=== PATIENT | female | born 1960 | race Caucasian/White ===

== ENCOUNTER 2018-04-20 01:00 | Outpatient (CLI) | payer BC, SELFPAY ==
--- NOTE | 2018-04-20 10:08 | DI.MAMMO_ITS ---
SYMPTOMS/DIAGNOSIS: SCREENING, Z12.31 MAMMOGRAM: Mammograms were interpreted according to the usual protocol including computer analysis with CAD system, tomosynthesis and C view imaging. There is no mass or suspicious calcifications. There has been no significant interval change when compared with prior images. SUMMARY: No evidence of malignancy, Category I, yearly screening recommended. Breast density A. MQSA ASSESSMENT OF FINDINGS: Negative. Category 1. Patient will receive a letter notifying them of these results. BI-RAD category A. The breasts are almost entirely fatty.
== END 2018-04-20 01:20 ==
PROVIDERS: PCP Nurse Practitioner; Visit Provider Nurse Practitioner Family
DX: Z12.31 Encounter for screening mammogram for malignant neoplasm of breast (principal)
CPT/HCPCS: 77063; 77067

== ENCOUNTER 2019-01-16 09:11 | Outpatient (CLI) | payer BC, SELFPAY ==
[2019-01-16 11:10] LABS: ALT 29 U/L (12-78); AST 20 U/L (15-37); Albumin 3.9 g/dL (3.4-5.0); Alkaline Phosphatase 85 U/L (46-116); Anion Gap 11.5 mmol/L (3-11); BUN 15 mg/dL (7-18); Bilirubin, Total 0.9 mg/dL (0.2-1.0); CO2 27.5 mmol/L (21.0-32.0); CREATININE 0.72 mg/dL (0.55-1.02); Calcium 8.9 mg/dL (8.5-10.1); Chloride 105 mmol/L (98-107); Glucose 104 mg/dL (70-100); Potassium 3.9 mmol/L (3.5-5.1); Sodium 144 mmol/L (136-145); Total Protein 6.7 g/dL (6.4-8.2)
[2019-01-16 14:27] LABS: Calculated LDL 100; Cholesterol 159 mg/dL (50-200); HDL Cholesterol 43 mg/dL (40-60); Triglyceride 81 mg/dL (30-150)
== END 2019-01-16 09:31 ==
PROVIDERS: PCP Nurse Practitioner; Visit Provider Nurse Practitioner
DX: E78.5 Hyperlipidemia, unspecified (principal); I10 Essential (primary) hypertension
CPT/HCPCS: 36415; 80053; 80061; 83721

== ENCOUNTER 2020-03-04 02:37 | Outpatient (CLI) | payer BC, SELFPAY ==
[2020-03-04 09:12] LABS: HCT 39.1 % (36.0-46.0); HGB 13.2 g/dL (11.2-15.7); MCH 28.6 pg (27.0-33.0); MCHC 33.8 % (32.0-36.0); MCV 84.6 fL (80-95); MPV 10.8 fL (8.0-11.0); Platelet Count 197 10^3/uL (130-400); RBC 4.62 10^6/uL (3.93-5.22); RDW-SD 39.8 fL; WBC 6.52 10^3/uL (4.4-10.8)
[2020-03-04 09:22] LABS: Hemoglobin A1C 5.4 % (3.8-5.6)
[2020-03-04 10:14] LABS: ALT 29 U/L (14-59); AST 19 U/L (15-37); Albumin 4.1 g/dL (3.4-5.0); Alkaline Phosphatase 68 U/L (46-116); Anion Gap 9.2 mmol/L (3-11); BUN 18 mg/dL (7-18); CO2 26.8 mmol/L (21.0-32.0); CREATININE 0.81 mg/dL (0.55-1.02); Calcium 8.6 mg/dL (8.5-10.1); Calculated LDL 108 mg/dL (<100); Chloride 106 mmol/L (98-107); Cholesterol 169 mg/dL (<200); Glucose 104 mg/dL (74-106); HDL Cholesterol 39 mg/dL (40-60); Potassium 3.8 mmol/L (3.5-5.1); Sodium 142 mmol/L (136-145); Total Protein 6.5 g/dL (6.4-8.2); Triglyceride 113 mg/dL (<150)
== END 2020-03-04 02:57 ==
PROVIDERS: PCP Nurse Practitioner; Visit Provider Nurse Practitioner
DX: I10 Essential (primary) hypertension (principal); R73.01 Impaired fasting glucose
CPT/HCPCS: 36415; 80053; 80061; 85027; 83036

== ENCOUNTER 2020-05-16 08:20 | Day surgery (SDC) | payer BC, SELFPAY ==
[2020-05-16 08:31] VITALS: BP 130/88; PULSE 79; RESP 17; TEMP 35.9; O2SAT 96
[2020-05-16] MEDS: Lactated Ringers 1,000 ML 80 ML IV (09:19)
--- NOTE | 2020-05-16 10:23 | W.PM.DSUDISC ---
Discharge Plan Disposition Patient Disposition: HOME Condition: Good Discharge Details Reason For Visit: Colonoscopy Attending Provider: Dai Stehpens Primary Care Provider: Sarah Szymanski Home Meds and New Rx's Prescriptions: Continued xeahdwzy-keydqqjpm-LR 3.5-10,000-1 mg/mL-unit/mL-% drops,suspension 2 drp Otic as directed PRN (Reason: itchy ears) Qty: 10 RF: 0 valacyclovir 1 gram tablet 2,000 mg PO BID PRN (Reason: cold sores) Qty: 30 RF: 1 albuterol sulfate [ProAir HFA] 90 mcg/actuation HFA aerosol inhaler 2 puff Inhalation Q4H PRN (Reason: shortness of breath or wheezing) Qty: 18 RF: 1 multivitamin [Daily Vitamin] 1 EACH tablet 1 ea PO DAILY RF: 0 calcium carb and citrate-vitD3 [Citracal-D3 Slow Release] 1 EACH tablet extended release 1 ea PO DAILY RF: 0 omeprazole 20 mg capsule,delayed release(DR/EC) 20 mg PO DAILY Qty: 90 RF: 3 verapamil 120 mg tablet extended release 120 mg PO DAILY Qty: 90 RF: 3 Myrbetriq 50 mg tablet extended release 24 hr 50 mg PO DAILY RF: 0 oxybutynin chloride 10 mg tablet extended release 24hr 10 mg PO BID RF: 0 Discontinued polyethylene glycol 3350 17 gram/dose powder 238 g PO ONCE Qty: 238 RF: 0 bisacodyl [Dulcolax (bisacodyl)] 5 mg tablet,delayed release (DR/EC) 5 mg PO ONCE Qty: 4 RF: 0 Discharge Instructions Additional Instructions: Findings: Your colonoscopy was normal. Follow up: Plan for colonoscopy in 5 years due to family history of colon cancer. Please call if you develop: fevers >101.5 Nausea or Vomiting Abdominal pain that is not transient DAY SURGERY UNIT POST COLONOSCOPY INSTRUCTIONS 1. Because there will be medication in your system for the next 24 hours, you may feel a little sleepy. Your coordination will be affected. Therefore: a. Do not drive or operate dangerous equipment for 24 hours. b. Do not drink alcohol beverages for 24 hours (not even beer). c. Plan to go home and rest for the day. 2. Generally there are no restrictions on your activity after a day or so has gone by, but you may feel a bit fatigued for a few days. 3 After you arrive home you may have a light meal and return to a normal diet as you can tolerate it without feeling sick to your stomach. 4. After surgery, you may feel pain or discomfort. This should be only transient, but if it persists please contact your doctor. 5. If there are any questions regarding the findings of your procedure, please feel free to contact your doctor. 6. If you are unable to contact your doctor with a problem, contact the hospital at [phone]. 7. Continue all your regular medications unless directed otherwise. I understand the above instructions and have no questions. Signature of Patient or Responsible Adult Escort Date/Time Name of Responsible Adult Escort Signature of Nurse Date/Time Activity:: Activity as Tolerated Diet:: As Tolerated Discharge Orders Discharge Orders: Discharge Order (Routine); Ordered 05/16/20 Ordered By: Dai Stephens DS: Diagnosis Discharge Diagnosis (1) FH: colon cancer: Status: Acute
--- NOTE | 2020-05-16 10:34 | W.COLOREPORT ---
Date of service: 05/16/20 Time of Service: 11:08 Colonoscopy Report Date of procedure: 05/16/20 Pre-op diagnosis general: FH colon cancer Post-op diagnosis procedure note: other (Normal colon) Procedure: Colonoscopy Surgeon: Dai Stephens Anesthesia proc note operative: MAC Indications: This 60 year old woman presents for colonoscopy. Her prior in 2014 was normal. Her father was treated for colon cancer. Procedure Description: The patient was placed in the left Coulter position. Propofol was titrated to sedation. Digital rectal examination revealed no abnormalities. The scope was advanced to the cecum without difficulty. The ileocecal valve and appendiceal orifice were clearly identified. The prep was good. The scope was slowly withdrawn over the course of greater than 6 minutes with no abnormalities seen in the ascending, transverse, descending, sigmoid colon or rectum including on retroflexed view. The patient tolerated the procedure well and was stable to recovery. Plan for colonoscopy in 5 years or sooner if symptoms indicate.
[2020-05-16 11:30] VITALS: BP 135/79; PULSE 75; RESP 16; TEMP 36.5; O2SAT 97
== END 2020-05-16 12:00 | disposition home or self-care (01) ==
PROVIDERS: PCP Nurse Practitioner; Visit Provider Surgery
PROC: 0DJD8ZZ Inspection of Lower Intestinal Tract, Via Natural or Artificial Opening Endoscopic (ICD-10-PCS; CPT 45378; principal; 2020-05-16 09:45)
DX: Z12.11 Encounter for screening for malignant neoplasm of colon (principal); Z80.0 Family history of malignant neoplasm of digestive organs; I10 Essential (primary) hypertension; K21.9 Gastro-esophageal reflux disease without esophagitis
CPT/HCPCS: 45378; J2704

== ENCOUNTER 2020-06-17 15:31 | Outpatient (REF) | payer BC, SELFPAY ==
--- NOTE | 2020-06-17 14:45 | PAPFT_PTH ---
PATIENT: Lucia Garcia LOC: [facility] U#:[id number] AGE/SX: 60/F ROOM: RE06/17/[address]: JAYLON Suarez : 1960 BED: DIS: 06/17/2020 SPEC #: [id number] RECD: 06/17/20 18:12 STATUS: ROSEMARY REQ #: [id number] CYN: 06/17/20 14:[address]: Iman Major DEPT: [facility] Cytology RECD BY: Claudia Barger ENTERED: 06/17/20 18:12 SP TYPE: PAPFT OT DR: Sarah Szymanski APRN Tissues: 1 - CX/ENDOCX FOR PAP SMEARS Procedures: PAP THIN PREP/UVM Screening HPV DNA PROBE Comments: [id number]
== END 2020-06-17 15:51 ==
LOC: LBN 15:31
PROVIDERS: PCP Nurse Practitioner; Visit Provider Nurse Practitioner Family
DX: Z12.4 Encounter for screening for malignant neoplasm of cervix (principal); R87.810 Cervical high risk human papillomavirus (HPV) DNA test positive; Z11.51 Encounter for screening for human papillomavirus (HPV)
CPT/HCPCS: 88142; 87624

== ENCOUNTER 2020-08-27 02:13 | Outpatient (CLI) | payer BC, SELFPAY ==
--- NOTE | 2020-08-27 11:00 | DI.MAMMO_ITS ---
EXAM: MG MAMMO SCREENING CLINICAL HISTORY: screening TECHNIQUE: Bilateral full field digital CC and MLO mammographic images were obtained with 3D tomosyn thesis and utilizing computer aided detection (CAD). COMPARISON: Available for comparison. FINDINGS: Masses/Architectural Distortion: There is ovoid asymmetric density in the upper right breast on the M LO view. It may represent overlying fibroglandular and vascular tissue. However, a spot compression views requested for further evaluation. Microcalcifications: No suspicious pleomorphic-type are seen. Skin Thickening/Nipple Retraction: None. IMPRESSION: 1. Ovoid density in the right upper breast on the MLO view. 2. Spot compression views requested for further evaluation. BI-RADS Category 0 - Assessment Incomplete: Need additional imaging evaluation Breast Density - Category B - Scattered areas of fibroglandular density Breast density category C or D implies that the patient has dense breast tissue. Dense breast tissue is very common and is not abnormal but dense breast tissue can make it harder to find cancer on a ma mmogram. Also, dense breast tissue may increase their breast cancer risk. This information about the result of the mammogram report was provided to the patient to raise their awareness. Use this report when you speak with the patient about their risks for breast cancer, which includes their family hist ory. At that time, you may recommend for more screening tests (Ultrasound or MRI) as they might be us eful based on their risk. A negative radiographic report should not delay biopsy if a dominant or clinically suspicious mass is present. Up to ten percent of cancers are not identified on mammography. A negative report may reinforce clinical impression. Adenosis and dense breasts may obscure an underlying neoplasm. False positive reports average 6 to 10%. Patient will receive a letter notifying them of these results.
== END 2020-08-27 02:14 | disposition home or self-care (01) ==
LOC: DI 02:14
PROVIDERS: PCP Nurse Practitioner; Visit Provider Nurse Practitioner Family
DX: Z12.31 Encounter for screening mammogram for malignant neoplasm of breast (principal); R92.8 Other abnormal and inconclusive findings on diagnostic imaging of breast
CPT/HCPCS: 77063; 77067

== ENCOUNTER 2020-08-29 02:18 | Outpatient (CLI) | payer BC, SELFPAY ==
--- NOTE | 2020-08-29 14:55 | DI.MAMMO_ITS ---
EXAM: MG MAMMO SCREEN CALL BACK UNI CLINICAL HISTORY: F/U MAMMO, OVOID DENSITY RT UPPER BREAST ON MLO. TECHNIQUE: Craniocaudal and mediolateral oblique Full Field Digital Mammography views of the right b reast with Computer Aided Diagnosis followed by Tomosynthesis. COMPARISON: Priors available for comparison. FINDINGS: Mammography/Tomosynthesis: Masses/Architectural Distortion: None seen. Microcalcifictions: No suspicious pleomorphic-type are seen. Skin Thickening/Nipple Retraction: None. IMPRESSION: 1. No evidence of malignancy is noted. 2. Unless there is more urgent need, follow-up screening mammography is recommended, as per [place] [employer] guidelines. 3. Findings were discussed with the patient on the date of the examination. BI-RADS Category 1 - Negative Breast Density - Category B - Scattered areas of fibroglandular density Breast density category C or D implies that the patient has dense breast tissue. Dense breast tissue is very common and is not abnormal but dense breast tissue can make it harder to find cancer on a ma mmogram. Also, dense breast tissue may increase their breast cancer risk. This information about the result of the mammogram report was provided to the patient to raise their awareness. Use this report when you speak with the patient about their risks for breast cancer, which includes their family hist ory. At that time, you may recommend for more screening tests (Ultrasound or MRI) as they might be us eful based on their risk. A negative radiographic report should not delay biopsy if a dominant or clinically suspicious mass is present. Up to ten percent of cancers are not identified on mammography. A negative report may reinforce clinical impression. Adenosis and dense breasts may obscure an underlying neoplasm. False positive reports average 6 to 10%. Patient will receive a letter notifying them of these results.
== END 2020-08-29 02:19 | disposition home or self-care (01) ==
LOC: DI 02:18
PROVIDERS: PCP Nurse Practitioner; Visit Provider Nurse Practitioner Family
DX: R92.8 Other abnormal and inconclusive findings on diagnostic imaging of breast (principal)
CPT/HCPCS: 77063; 77067

== ENCOUNTER 2021-02-18 03:24 | Outpatient (CLI) | payer BC, SELFPAY ==
[2021-02-18 09:55] LABS: Hemoglobin A1C 5.5 % (<5.7)
[2021-02-18 09:58] LABS: ALT 24 U/L (14-59); AST 17 U/L (15-37); Albumin 3.9 g/dL (3.4-5.0); Alkaline Phosphatase 79 U/L (46-116); Anion Gap 10.6 mmol/L (3-11); BUN 14 mg/dL (7-18); Bilirubin, Total 0.8 mg/dL (0.2-1.0); CO2 27.4 mmol/L (21.0-32.0); CREATININE 0.7 mg/dL (0.55-1.02); Calcium 8.6 mg/dL (8.5-10.1); Calculated LDL 98 mg/dL (<100); Chloride 105 mmol/L (98-107); Cholesterol 161 mg/dL (<200); Glucose 109 mg/dL (74-106); HDL Cholesterol 40 mg/dL (40-60); Potassium 4.1 mmol/L (3.5-5.1); Sodium 143 mmol/L (136-145); Total Protein 6.6 g/dL (6.4-8.2); Triglyceride 119 mg/dL (<150)
== END 2021-02-18 03:25 | disposition home or self-care (01) ==
LOC: LBO 03:24
PROVIDERS: PCP Nurse Practitioner; Visit Provider Nurse Practitioner
DX: I10 Essential (primary) hypertension (principal); R73.01 Impaired fasting glucose; E11.9 Type 2 diabetes mellitus without complications; E66.9 Obesity, unspecified
CPT/HCPCS: 36415; 80053; 80061; 83036

== ENCOUNTER 2021-08-10 01:04 | Outpatient (CLI) | payer BC, SELFPAY ==
[2021-08-10] MEDS: Inhaler, Assist Device 1 EACH MC (09:59)
[2021-08-10] MEDS: Albuterol HFA 18 GM 200 PUFF INH IH (09:59)
--- NOTE | 2021-08-10 11:26 | W.PFT ---
Date of service: 08/10/21 Time of Service: 08:12 Pulmonary Function Test Result Requesting Provider Sarah Szymanski Indications: Cough Interpretation Spirometry: There is no airflow limitation. There is no significant bronchodilator response Diffusion Capacity: Diffusion is normal. Impression Normal spirometry and diffusion capacity Note: Patient unable to complete plethysmography due to claustrophobia. Clinical Correlation therefore is recommended.
== END 2021-08-10 01:05 | disposition home or self-care (01) ==
LOC: RT 01:04
PROVIDERS: PCP Nurse Practitioner; Visit Provider Nurse Practitioner
DX: R05.8 Other specified cough (principal)
CPT/HCPCS: 94060; 94729

== ENCOUNTER 2021-09-10 15:05 | Outpatient (REF) | payer BC, SELFPAY ==
--- NOTE | 2021-09-10 14:30 | PAPFT_PTH ---
PATIENT: Lucia Garcia LOC: [facility] U#:[id number] AGE/SX: 61/F ROOM: RE09/10/[address]: JAYLON Suarez : 1960 BED: DIS: 09/10/2021 SPEC #: [id number] RECD: 09/10/21 18:16 STATUS: ROSEMARY REQ #: [id number] CYN: 09/10/21 14:[address]: Iman Major DEPT: [facility] Cytology RECD BY: Claudia Barger ENTERED: 09/10/21 18:17 SP TYPE: PAPFT OTHR DR: Sarah Szymanski APRN Tissues: 1 - CX/ENDOCX FOR PAP SMEARS Procedures: PAP THIN PREP/UVM Screening HPV DNA PROBE Comments: [id number]
== END 2021-09-10 15:06 | disposition home or self-care (01) ==
LOC: LBN 15:05
PROVIDERS: PCP Nurse Practitioner; Visit Provider Nurse Practitioner Family
DX: Z12.4 Encounter for screening for malignant neoplasm of cervix (principal); Z11.51 Encounter for screening for human papillomavirus (HPV)
CPT/HCPCS: 88142; 87624

== ENCOUNTER 2021-09-18 02:23 | Outpatient (CLI) | payer BC, SELFPAY ==
--- NOTE | 2021-09-18 11:30 | DI.MAMMO_ITS ---
Exam(s) MAMMO SCREENING EXAM: MAMMO SCREENING CLINICAL HISTORY: screening. TECHNIQUE: Bilateral full field digital CC and MLO mammographic images were obtained with 3D tomosyn thesis and utilizing computer aided detection (CAD). COMPARISON: Prior mammograms were reviewed, the most recent being . FINDINGS: There are no new spiculated masses nor malignant appearing microcalcification groups. There is no significant architectural distortion nor skin thickening-retraction. IMPRESSION: No radiographic evidence of malignancy. BI-RADS Category 1 - Negative Breast Density - Category B - Scattered areas of fibroglandular density Breast density Category C or D implies that the patient has dense breast tissue. Dense breast tissue can make it harder to find cancer on a mammogram. Dense breast tissue is also associated with an incr eased risk of breast cancer. This information about the result of the mammogram report was provided to the patient to raise their awareness. Use this report when you speak with the patient about their risks for breast cancer, which includes their family history. At that time, you may recommend additional screening tests (Ultrasoun d or MRI) as these tests may add significant information. A negative radiographic report should not delay biopsy if a dominant or clinically suspicious mass is present. Up to ten percent of cancers are not identified on mammography. A negative report may reinforce clinical impression. Adenosis and dense breasts may obscure an underlying neoplasm. False positive reports average 6 to 10%. Patient will receive a letter notifying them of these results.
== END 2021-09-18 02:43 ==
PROVIDERS: PCP Nurse Practitioner; Visit Provider Nurse Practitioner Family
DX: Z12.31 Encounter for screening mammogram for malignant neoplasm of breast (principal)
CPT/HCPCS: 77063; 77067

== ENCOUNTER 2022-03-12 01:13 | Outpatient (CLI) | payer BC, SELFPAY ==
[2022-03-12 11:27] LABS: ALT 24 U/L (14-59); AST 19 U/L (15-37); Albumin 3.8 g/dL (3.4-5.0); Alkaline Phosphatase 71 U/L (46-116); Anion Gap 10.2 mmol/L (3-11); BUN 15 mg/dL (7-18); Bilirubin, Total 0.7 mg/dL (0.2-1.0); CO2 27.8 mmol/L (21.0-32.0); CREATININE 0.8 mg/dL (0.55-1.02); Calcium 8.8 mg/dL (8.5-10.1); Calculated LDL 104 mg/dL (<100); Chloride 104 mmol/L (98-107); Cholesterol 170 mg/dL (<200); Glucose 109 mg/dL (74-106); HDL Cholesterol 47 mg/dL (40-60); Sodium 142 mmol/L (136-145); Total Protein 7.1 g/dL (6.4-8.2); Triglyceride 95 mg/dL (<150)
== END 2022-03-12 01:14 | disposition home or self-care (01) ==
LOC: LBO 01:13
PROVIDERS: PCP Nurse Practitioner; Visit Provider Nurse Practitioner
DX: I10 Essential (primary) hypertension (principal); R73.01 Impaired fasting glucose
CPT/HCPCS: 36415; 80053; 80061; 83036

== ENCOUNTER 2022-06-28 09:20 | Outpatient (CLI) | payer BC, SELFPAY ==
[2022-06-28 09:26] LABS: Source Nasal/Nares
[2022-06-28 09:58] LABS: COVID-19 PCR Negative (Negative)
== END 2022-06-28 09:21 | disposition home or self-care (01) ==
LOC: LBN 09:21
PROVIDERS: PCP Nurse Practitioner; Visit Provider Student in an Organized Health Care Education/Training Program
DX: Z01.812 Encounter for preprocedural laboratory examination (principal); Z20.822 Contact with and (suspected) exposure to COVID-19
CPT/HCPCS: 87635

== ENCOUNTER 2022-06-29 06:07 | Day surgery (SDC) | payer BC, SELFPAY ==
[2022-06-29] VITALS (8 sets, daily range): BP systolic 108–142; BP diastolic 68–99; PULSE 64–78; RESP 12–18; TEMP 36.3–36.8; O2SAT 92–99; BMI 36.8
--- NOTE | 2022-06-29 07:02 | ANES.PREOP_ITS ---
General Info Date of Service Date Performed: 06/29/22 Height: 5 ft 3 in Weight: 94.3 kg Body Mass Index (BMI): 36.8 Surgical Procedure: Operation Date: 06/29/22 07:40 Proposed Procedure Side Surgeon p Bronchoscopy w/PURA Ruiz MD Meds Allergies and Home Medications Allergies Allergy/AdvReac Type Severity Reaction Status Date / Time adhesive Allergy Intermediate Itching Verified 06/29/22 06:20 hydromorphone HCl AdvReac Intermediate VOMITING, Verified 06/29/22 06:20 [From Dilaudid] Nausea Home Medication Medication Instructions Recorded multivitamin (Daily Vitamin tablet) 1 ea PO DAILY 10/10/12 oxybutynin chloride 10 mg 10 mg PO BID 03/20/20 tablet,extended release 24 hr idpnpqna-yufdzkvbw-pzxppqknu 3.5 2 drp otic (ear) as directed PRN 02/10/21 mg-10,000 unit/mL-1 % ear itchy ears #10 mL drops,susp valacyclovir 1 gram tablet 2,000 mg PO BID PRN cold sores #30 02/10/21 tabs omeprazole 20 mg capsule,delayed 20 mg PO DAILY #90 tab-caps 09/09/21 release verapamil 120 mg tablet,extended 120 mg PO DAILY #90 tabs 02/25/22 release ferrous sulfate 325 mg (65 mg 325 mg PO DAILY 04/20/22 iron) tablet benzonatate 100 mg capsule 100 mg PO TID PRN cough #30 06/04/22 tab-caps Current Visit Medications: Current Medications Generic Name Dose Route Start Last Admin Trade Name Freq PRN Reason Stop Dose Admin Albuterol/Ipratropium 3 ml 06/29/22 06:53 Albuterol/Ipratropium 3 Ml Upd Vial UPD Q2H PRN PRN for SOB, wheezing, or cough IV Miscellaneous Supplies 1 each 06/29/22 06:00 Iv Access IV 07/28/22 23:59 DIRECTED ARMIDA Sodium Chloride 0 ml 06/29/22 06:00 Normal Saline Flush 10 Ml Syr IV 07/28/22 23:59 PRN PRN Sodium Chloride 0 ml 06/29/22 06:00 Normal Saline 10 Ml Vial IJ 07/28/22 23:59 DIRECTED PRN Sterile Water 0 ml 06/29/22 06:00 Water,Injection,Sterile 10 Ml Vial IJ 07/28/22 23:59 DIRECTED PRN PFSH Active Problems Active Problems: Problem Status Onset Code COVID ~06/03/22 U07.1 Pre-diabetes R73.03 Chronic cough R05.3 Routine medical exam Z00.00 FH: colon cancer Z80.0 Osteoarthritis, knee 09/28/11 M17.10 Snoring 10/12/12 R06.83 Reactive airways dysfunction syndrome 09/28/11 J68.3 Obesity 10/12/12 E66.9 Other hypertrophic osteoarthropathy, unspecified site 09/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 Headache 09/28/11 R51 Gastroesophageal reflux disease 10/31/15 K21.9 Frequency of urination 03/24/17 R35.0 Essential hypertension 09/28/11 I10 Anxiety state 09/30/11 F41.1 Arteaga's neuroma of right foot ~12/2018 G57.61 IFG (impaired fasting glucose) R73.01 Routine general medical examination at a health care facility Z00.00 Encounter for screening laboratory testing for COVID-19 virus Z11.59 Recurrent cold sores B00.1 OAB (overactive bladder) N32.81 Medical History Medical History Anxiety Biliary colic Essential hypertension GERD (gastroesophageal reflux disease) Osteoarthrosis Reactive airway disease Per pt. states she has had full work up at [facility] [place] but states she has always had a chronic light cough, and a raspy voice. Symptomatic menopausal or female climacteric states Age 49 Medical History Comments:: Chronic cough Surgical History Surgical History Arthroplasty of knee (07/09/13) Dr Elda Kellogg knee arthroscopy Bilateral knee replacement section x2 cholecystectomy (06/15/17) Colonoscopy - IV Sedation (05/30/15) Spencer Armas MD [facility] [place] EGD - IV Sedation (01/22/16) Rah Sharma MD [place] History of ankle surgery compartment syndrome ptosis eyelid repair, 2011 Replacement of total knee joint (10/07/16) [facility] rgt knee surgery, torn meniscus,fascia L Tobacco Smoking/Tobacco Use Status: Never Passive smoking exposure: No Alcohol Alcohol Intake: current Alcohol intake frequency: a few times a month Alcohol type: wine and other Substance Use Substance use: Never Substance use type: does not use Vital Signs and Lab Results Vital Signs Most Recent Vital Signs in EMR: Most Recent Vital Signs Temp Pulse Resp BP Pulse Ox 36.5 C 70 16 142/88 H 97 06/29/22 06:29 06/29/22 06:29 06/29/22 06:29 06/29/22 06:29 06/29/22 06:29 Lab Results Blood Type / Crossmatch: No Data to Display Complete Blood Count: No Data to Display Complete Metabolic Panel: No Data to Display Liver Function Panel: No Data to Display Coagulation Panel: No Data to Display Cardiac Panel: No Data to Display Arterial Blood Gas: No Data to Display Venous Blood Gas: No Data to Display Pancreas Panel: No Data to Display Thyroid Panel: No Data to Display Infectious Disease: Coronavirus (COVID-19)(PCR) Negative (Negative) 06/28/22 09:12 Coronavirus 2019 Source Nasal/Nares 06/28/22 09:12 Blood Cultures: No Data to Display Toxicology Panel: No Data to Display Imaging and Studies Imaging and Studies Study information below may be from another EMR and interpreted by another provider. Please see original notes in EMR for more complete details. Pulmonary Function Summary: DATE OF ADMIT: 08/10/21 : 1960 Date of service: 08/10/21 Time of Service: 08:12 Pulmonary Function Test Result Requesting Provider Sarah Szymanski Indications: Cough Interpretation Spirometry: There is no airflow limitation. There is no significant bronchodilator response Diffusion Capacity: Diffusion is normal. Impression Normal spirometry and diffusion capacity Note: Patient unable to complete plethysmography due to claustrophobia. Clinical Correlation therefore is recommended. Anesthesia Assessment and Plan Anesthesia History Personal History: No History of Anesthesia Complications Family History: No Family History of Anesthesia Complications Exercise Tolerance Exercise Tolerance: Metabolic Equivalents>4 Pertinent Negatives Pertinent Negatives: No Symptoms of GERD Cardiac & Pulmonary Exam Cardiac Exam: Normal S1/S2 Heart Sounds Pulmonary Exam: Clear Bilateral Breath Sounds Implantable Cardiac Device Does patient have a Pacemaker or an ICD?: No Airway Exam Known Difficult Airway: No Mallampati Class: 2 Mouth Opening: Normal (> 3cm) Thyromental Distance: Greater than 3 cm Neck Range of Motion: Full ROM Neck Circumference: Normal Teeth Condition: Normal Dentition ASA Classification ASA Score: ASA 2 Emergency Case?: No NPO Status NPO Status: NPO Clears >2 hours, Solids >8 hours Anesthesia Plan Resuscitation Status: Full Code Anesthesia Technique: General Anesthesia Airway Planned: Endotracheal Tube Monitors Used: Standard Monitors
[2022-06-29] MEDS: Lactated Ringers 1,000 ML 30 ML IV (07:10)
--- NOTE | 2022-06-29 07:32 | W.PREOPHP ---
Assessment and Plan Assessment and plan (1) Chronic cough: Status: Acute Assessment and plan: This is a 61 yo female referred to pulmonary clinic for chronic cough. He methacholine challenge was negative and her PFT's are normal. She has the HRCT which shows a RML nodule but no reason for the cough. She is here for flexible bronchoscopy to help diagnose the etiology. Chronic Cough Proceed with bronchoscopy History of Present Illness Narrative: 62 yo with chronic cough here for flexible bronchoscopy to possibly diagnose the etiology. Review of Systems Narrative: cough PFSH All Active Problems COVID (Acute ~06/03/22) Pre-diabetes (Acute) Chronic cough (Acute) Routine medical exam (Acute) FH: colon cancer (Acute) Osteoarthritis, knee (Acute 09/28/11) 07/09/15 Dr. Karlos Lan clinic bilateral knee steroid injections Snoring (Acute 10/12/12) WORKING ON WEIGHT LOSS; MONITOR SPO2 Reactive airways dysfunction syndrome (Acute 09/28/11) Work-up at [facility] Obesity (Acute 10/12/12) Other hypertrophic osteoarthropathy, unspecified site (Acute 09/28/11) KNEE, WORKING ON WEIGHT LOSS Headache (Acute 09/28/11) h/o migraine disorder, takes verapamil--which helps with HTN as well Gastroesophageal reflux disease (Acute 10/31/15) Frequency of urination (Acute 03/24/17) Sees Dr Bashir Essential hypertension (Acute 09/28/11) Anxiety state (Acute 09/30/11) Sertraline controlled Arteaga's neuroma of right foot (Acute ~12/2018) Cory Martinez DPM IFG (impaired fasting glucose) (Acute) Routine general medical examination at a health care facility (Acute) Encounter for screening laboratory testing for COVID-19 virus (Acute) Recurrent cold sores (Acute) OAB (overactive bladder) (Acute) Medical History Anxiety Biliary colic Essential hypertension GERD (gastroesophageal reflux disease) Osteoarthrosis Reactive airway disease Per pt. states she has had full work up at [facility] but states she has always had a chronic light cough, and a raspy voice. Symptomatic menopausal or female climacteric states Age 49 Surgical History Arthroplasty of knee (07/09/13) Dr Elda Kellogg knee arthroscopy Bilateral knee replacement section x2 cholecystectomy (06/15/17) Colonoscopy - IV Sedation (05/30/15) Spencer Armas MD [facility] EGD - IV Sedation (01/22/16) Rah Sharma MD [place] History of ankle surgery compartment syndrome ptosis eyelid repair, 2011 Replacement of total knee joint (10/07/16) [facility] rgt knee surgery, torn meniscus,fascia L Family History Mother Disorder of thyroid gland Hypertension Osteoarthritis Father , alcoholism at age 78. Personal history of malignant neoplasm colorectal Alcoholism Colon cancer Anxiety Depression Osteoarthritis Grandmother Muscular dystrophy Other Dementia Daughter Disorder of thyroid gland Thyroidectomy Anxiety Depression Paternal Grandmother Alcohol abuse alcohol or drug Aunt Breast cancer maternal great aunt Other Asthma Attention deficit hyperactivity disorder Social History (Updated 02/25/22 @ 15:43 by Bebe Kebede LPN) Smoking/Tobacco Use Status: Never Smoking risk assessment performed?: Yes Alcohol Intake: current Alcohol Intake frequency: a few times a month Alcohol type: wine and other Drug use: Never Substance use type: does not use Household members: spouse Housing: house Number of Children: 2 number of grandchildren: 0 Communication Needs: Corrective Lenses Education Level: college Details: BS in psychology current occupation: retired Current gender identity: male What is your relationship status?: How often do you talk on the phone with friends or family?: three or more times per week How often do you get together with friends or relatives?: three or more times per week Panel score (0-1 are the most socially isolated patients): 2 What type of physical activity do you participate in: walking and bicycling Frequency: 1-2 times per week Seatbelt use: always Working smoke detector in home: Yes Fire extinguisher in home: Yes Carbon monox detector in home: Yes Do you feel safe at home: Yes Do you feel safe in your relationship?: Yes Female Reproductive History Menstrual Menopause type: natural Meds Allergies and Home Medications Allergies Allergy/AdvReac Type Severity Reaction Status Date / Time adhesive Allergy Intermediate Itching Verified 06/29/22 06:20 hydromorphone HCl AdvReac Intermediate VOMITING, Verified 06/29/22 06:20 [From Dilaudid] Nausea Home Medications Medication Instructions Recorded Confirmed Type multivitamin (Daily Vitamin tablet) 1 ea PO DAILY 10/10/12 06/29/22 History oxybutynin chloride 10 mg 10 mg PO BID 03/20/20 06/29/22 History tablet,extended release 24 hr ihhyzjtv-xmaeqpzwa-tfvnlxtoa 3.5 2 drp otic (ear) as directed PRN 02/10/21 06/29/22 Rx mg-10,000 unit/mL-1 % ear itchy ears #10 mL drops,susp valacyclovir 1 gram tablet 2,000 mg PO BID PRN cold sores #30 02/10/21 06/29/22 Rx tabs omeprazole 20 mg capsule,delayed 20 mg PO DAILY #90 tab-caps 09/09/21 06/29/22 Rx release verapamil 120 mg tablet,extended 120 mg PO DAILY #90 tabs 02/25/22 06/29/22 Rx release ferrous sulfate 325 mg (65 mg 325 mg PO DAILY 04/20/22 06/29/22 History iron) tablet benzonatate 100 mg capsule 100 mg PO TID PRN cough #30 06/04/22 06/29/22 Rx tab-caps Exam Narrative Exam Narrative: Gen:?NAD, normal respiratory effort, well-nourished HENT:?PERRL, nasal turbinates boggy and inflamed bilaterally, moist oral? mucosa, Mallampati 3, No LAD or JVD Chest:?No respiratory distress, normal appearance of chest, clear to auscultation bilaterally, no crackles or wheezes, normal inspiratory effort Heart:?regular rate and rhythym, no murmurs, rubs or gallops Abdomen:?Non-distended, soft, non tender Extremities:?No clubbing, edema, cyanosis, rashes Neuro:?AAOx3 , non focal Psych:?cooperative, appropriate mental affect Results Last Vital Signs Temp 36.5 C 06/29/22 06:29 Pulse 70 06/29/22 06:29 Resp 16 06/29/22 06:29 BP 142/88 H 06/29/22 06:29 Pulse Ox 97 06/29/22 06:29
--- NOTE | 2022-06-29 08:08 | PAPNONF_PTH ---
PATIENT: Lucia Garcia LOC: [facility] U#:[id number] AGE/SX: 62/F ROOM: RE06/29/[address]: Shruthi Ruiz MD : 1960 BED: DIS: 06/29/2022 SPEC #: [id number] RECD: 06/29/22 12:50 STATUS: ROSEMARY REJamaal #: [id number] CYN: 06/29/22 08:[address]: Shruthi Ruiz DEPT: [facility] Cytology RECD BY: Claudia Barger ENTERED: 06/29/22 12:51 SP TYPE: BRYAN REYEZ DR: Sarah Szymanski APRN Tissues: 1 - BODY FLUID CYTO(NOT S/U/N/EM)[facility] 2 - BODY FLUID CYTO(NOT S/U/N/EM)[facility] Procedures: BODY FLUID CYTO(NOT SPU/UR/NIP/ENDOM)[facility] Comments: [id number] (REFRIGERATED, SENT FRESH)
[2022-06-29] MEDS: Lidocaine 1% Pres-Free 30 ML VIAL (08:13)
--- NOTE | 2022-06-29 08:55 | W.ANESPOSTOP ---
Postoperative Evaluation Date, Time and Location Date Performed: 06/29/22 Time Performed: 08:56 Patient Location: PACU Vital Signs Most Recent Imported Vital Signs: Most Recent Vital Signs Temp Pulse Resp BP Pulse Ox 36.7 C 74 12 112/76 99 06/29/22 08:47 06/29/22 08:47 06/29/22 08:47 06/29/22 08:47 06/29/22 08:32 Pain Score Most Recent Pain Score: Most Recent Pain Score Pain Level 0 06/29/22 08:47 Assessment Mental Status: Awake (Alert & Oriented to Patient Baseline) Airway and Respiratory Function: Patent airway with normal (patient baseline) respiratory exam Cardiovascular Function: Hemodynamically Stable Hydration Status: Adequately Hydrated Nausea & Vomiting: No Nausea or Vomiting Pain: Pt. Denies Any Pain Peripheral Nerve Block: Patient did not receive a nerve block Postoperative Comments:: Cough improving wiht time. Pt. doing well.
--- NOTE | 2022-06-29 09:37 | W.PM.OP ---
Date of service: 06/29/22 Time of Service: 08:00 Operative Note Operative Note PRE-OP DIAGNOSIS: Chronic cough Refer to Anesthesia Record Procedure Description: Bronchoscopy Indication:Chronic cough Procedure performed: Flexible bronchoscopy with BAL, bronchial washings and endobronchial brushing Sedation plan: General anesthesia Informed consent was obtained after the risks and benefits or the procedure were discussed. After anesthesia provided sedation, I intubated the patient with a glydescope 3 with a 8.0 ETT on first attempt. A proper and complete OR compliant time out was performed. The therapeutic 6.2mm Olympus bronchoscope was inserted through the endotracheal tube. The bronchoscope was inserted into the airways, where 2cc in total of 1% topical lidocaine was used the anesthetize the airways. The trachea was midline and without lesion or injury. The mucosa appeared normal and there were no signs of tracheomalacia. The ino was sharp. All bronchial subsegments were visualized within each lobe and showed generously sized airways bordering on bronchiectasis but without significant mucus. There were numerous diverticuli present diffusely through the airways. In the posterior basal subsegment of the LLL there was redundant appearing tissue at the take off to this segment. On phased array it appeared to be normal tissue but less vascularized than surrounding tissue. I completed 8 passes of an endobronchial brush of this tissue to send for pathology. A bronchoalveolar lavage was performed in the lateral subsegment of the RML. A total of 120cc of saline was administered with a return of 40cc. The fluid was slightly cloudy in appearance with visible mucus plugs. The bronchoscope was then removed and the case terminated. The patient was taken to PACU in stable condition. Samples collected: RML BAL, LLL endobonchial brushing, bronchial washings Testing ordered: cell diff, bacterial, fungal and AFB cultures, cytopath Complications:None Shruthi Ruiz MD Pulmonary & Critical Care Medicine
[2022-06-30 16:34] LABS: Lymphocytes Fluid Relative 10 %; Mono/Macrophage Fluid Relative 85 %; Neutrophils Fluid Relative 4 %
[2022-06-30 16:35] LABS: Eosinophils Fluid Relative 1 %
[2022-07-01 09:31] LABS: Gram Smear Result Neutrophils Present
[2022-07-27 10:33] LABS: Fungus Smear No Fungi Seen
[2022-07-27 10:44] LABS: Fungus Smear No Fungi Seen
== END 2022-06-29 10:15 | disposition home or self-care (01) ==
PROVIDERS: PCP Nurse Practitioner; Visit Provider Student in an Organized Health Care Education/Training Program
PROC: 0BJ08ZZ Inspection of Tracheobronchial Tree, Via Natural or Artificial Opening Endoscopic (ICD-10-PCS; CPT 31622; principal; 2022-06-29 07:30)
DX: R05.3 Chronic cough (principal); R91.1 Solitary pulmonary nodule; Z79.899 Other long term (current) drug therapy; R84.6 Abnormal cytological findings in specimens from respiratory organs and thorax
CPT/HCPCS: 31623; 31624; 80162; 87070; 87102; 87116; 87205; 87206; 88104; J1100; J2405; J2704

== ENCOUNTER 2022-07-07 03:07 | Outpatient (CLI) | payer BC, SELFPAY ==
[2022-07-07 11:05] LABS: Hemoglobin A1C 5.5 % (<5.7)
== END 2022-07-07 03:08 | disposition home or self-care (01) ==
LOC: LBO 03:07
PROVIDERS: PCP Nurse Practitioner; Visit Provider Nurse Practitioner
DX: R73.03 Prediabetes (principal)
CPT/HCPCS: 36415; 83036

== ENCOUNTER 2023-06-15 03:38 | Outpatient (CLI) | payer MEDICARE, BC, SELFPAY ==
[2023-06-15 09:13] LABS: ALT 22 U/L (14-59); AST 16 U/L (15-37); Albumin 3.9 g/dL (3.4-5.0); Alkaline Phosphatase 88 U/L (46-116); Anion Gap 8.9 mmol/L (3-11); BUN 13 mg/dL (7-18); Bilirubin, Total 0.7 mg/dL (0.2-1.0); CO2 30.1 mmol/L (21.0-32.0); CREATININE 0.9 mg/dL (0.55-1.02); Calcium 9.3 mg/dL (8.5-10.1); Calculated LDL 110 mg/dL (<100); Chloride 103 mmol/L (98-107); Cholesterol 175 mg/dL (<200); Estimated GFR 70.95 (mL/min/1.73m2); Glucose 113 mg/dL (74-106); HDL Cholesterol 44 mg/dL (40-60); Potassium 3.6 mmol/L (3.5-5.1); Sodium 142 mmol/L (136-145); Total Protein 7.6 g/dL (6.4-8.2); Triglyceride 109 mg/dL (<150)
[2023-06-15 09:20] LABS: Hemoglobin A1C 5.3 % (<5.7)
== END 2023-06-15 03:39 | disposition home or self-care (01) ==
LOC: LBO 03:39
PROVIDERS: PCP Nurse Practitioner; Referring Provider Nurse Practitioner; Visit Provider Nurse Practitioner
DX: I10 Essential (primary) hypertension (principal); Z13.1 Encounter for screening for diabetes mellitus; Z13.220 Encounter for screening for lipoid disorders; E11.9 Type 2 diabetes mellitus without complications
CPT/HCPCS: 36415; 80053; 80061; 83036

== ENCOUNTER → 2023-06-22 02:09 | Outpatient (CLI) | payer MEDICARE, BC, SELFPAY ==
--- NOTE | 2023-06-22 07:45 | DI.DEXA_ITS ---
Exam(s) XR DEXA BONE DENSITY W/WO HAWA EXAM: XR DEXA BONE DENSITY W/WO HAWA CLINICAL HISTORY: screening for osteoporosis in postmenopausal woman,z78.0 TECHNIQUE: COMPARISON: No exams were available for comparison FINDINGS: Lateral Spine Image: Unremarkable. No compression deformities identified. Left hip: Total T-Score: -0.2 Total Z-Score: 1.0 T- and Z-scores: Within normal limits. Lumbar Spine: Total T-Score: -0.5 Total Z-Score: 1.3 T- and Z-scores: Within normal limits. IMPRESSION: No evidence of osteoporosis.
== END ==
PROVIDERS: PCP Nurse Practitioner; Visit Provider Nurse Practitioner
DX: Z78.0 Asymptomatic menopausal state (principal); Z13.820 Encounter for screening for osteoporosis
CPT/HCPCS: 77080

== ENCOUNTER → 2023-08-16 11:15 | Outpatient (BNVA) | payer MEDICARE, BC, SELFPAY | PROVIDERS: PCP Nurse Practitioner; Referring Provider Nurse Practitioner; Visit Provider Physician Assistant Surgical | DX: R05.3 Chronic cough (principal) | CPT/HCPCS: 99214 ==

== ENCOUNTER 2023-10-05 15:55 | Outpatient (REF) | payer MEDICARE, BC, SELFPAY ==
--- NOTE | 2023-10-05 15:10 | PAPFT_PTH ---
PATIENT: Lucia Garcia LOC: [facility] U#:[id number] AGE/SX: 63/F ROOM: RE10/05/[address]: Jes Diaz NP : 1960 BED: DIS: 10/05/2023 SPEC #: [id number] RECD: 10/05/23 17:29 STATUS: ROSEMARY JIANG #: [id number] CYN: 10/05/23 15:[address]: Jes Diaz NP DEPT: [facility] Cytology RECD BY: Claudia Barger ENTERED: 10/05/23 17:30 SP TYPE: PAPFT OTHR DR: Sarah Szymanski APRN Tissues: 1 - CX/ENDOCX FOR PAP SMEARS Procedures: PAP THIN PREP/[facility] Screening HPV DNA PROBE Comments: [id number]
== END 2023-10-05 15:56 | disposition home or self-care (01) ==
LOC: LBN 15:55
PROVIDERS: PCP Nurse Practitioner; Visit Provider Nurse Practitioner Women's Health
DX: Z11.51 Encounter for screening for human papillomavirus (HPV) (principal); Z01.419 Encounter for gynecological examination (general) (routine) without abnormal findings
CPT/HCPCS: 88142; 87624

== ENCOUNTER → 2023-10-14 00:16 | Outpatient (CLI) | payer MEDICARE, BC, SELFPAY ==
--- NOTE | 2023-10-14 11:50 | DI.MAMMO_ITS ---
Exam(s) MAMMO SCREENING EXAM: MAMMO SCREENING CLINICAL HISTORY: screening. TECHNIQUE: Bilateral full field digital CC and MLO mammographic images were obtained with 3D tomosyn thesis and utilizing computer aided detection (CAD). COMPARISON: Prior mammograms were reviewed. FINDINGS: There has been no significant change in the appearance and distribution of the fibroglandular tissue. There are no new spiculated masses nor malignant appearing microcalcification groups. There is no significant architectural distortion nor skin thickening-retraction. IMPRESSION: No radiographic evidence of malignancy. BI-RADS Category 1 - Negative Breast Density - Category B - Scattered areas of fibroglandular density Breast density Category C or D implies that the patient has dense breast tissue. Dense breast tissue can make it harder to find cancer on a mammogram. Dense breast tissue is also associated with an incr eased risk of breast cancer. This information about the result of the mammogram report was provided to the patient to raise their awareness. Use this report when you speak with the patient about their risks for breast cancer, which includes their family history. At that time, you may recommend additional screening tests (Ultrasoun d or MRI) as these tests may add significant information. A negative radiographic report should not delay biopsy if a dominant or clinically suspicious mass is present. Up to ten percent of cancers are not identified on mammography. A negative report may reinforce clinical impression. Adenosis and dense breasts may obscure an underlying neoplasm. False positive reports average 6 to 10%. Patient will receive a letter notifying them of these results.
== END ==
PROVIDERS: PCP Nurse Practitioner; Visit Provider Nurse Practitioner Women's Health
DX: Z12.31 Encounter for screening mammogram for malignant neoplasm of breast (principal)
CPT/HCPCS: 77063; 77067

== ENCOUNTER → 2023-12-27 12:57 | Outpatient (CLI) | payer MEDICARE, BC, SELFPAY ==
--- NOTE | 2023-12-27 13:50 | DI.RAD_ITS ---
Exam(s) XR FINGER RT MIDDLE EXAM: XR FINGER RT MIDDLE CLINICAL HISTORY: DYSTROPHIC NAIL L60.3, INFECTION, INCLUDE MIDDLE AND DISTAL PHALANX. TECHNIQUE: 2D digital imaging was performed of the right finger. Three views were obtained. PA/AP, oblique, and lateral views were obtained. COMPARISON: No exams were available for comparison FINDINGS: BONES: No acute fracture is present. No bony destructive lesion is seen. JOINTS: No dislocation present. Degenerative changes are seen at the interphalangeal joints characte rized by joint space narrowing and osteophytes. Mild erosive changes are seen at the DIP joint of th e middle finger. SOFT TISSUE: There is soft tissue swelling of the middle finger. No radiopaque foreign body is ident ified. IMPRESSION: Findings suggestive of erosive osteoarthritis. DATA REPOSITORY: RADIATION DOSE DELIVERED:
== END ==
PROVIDERS: PCP Nurse Practitioner; Visit Provider Nurse Practitioner
DX: L60.3 Nail dystrophy (principal); M18.11 Unilateral primary osteoarthritis of first carpometacarpal joint, right hand
CPT/HCPCS: 73140

== ENCOUNTER → 2024-01-11 03:03 | Outpatient (CLI) | payer MEDICARE, BC, SELFPAY ==
--- NOTE | 2024-01-11 15:49 | DI.RAD_ITS ---
Exam(s) XR CHEST 2V PA LATERAL EXAM: XR CHEST 2V PA LATERAL CLINICAL HISTORY: recent altitude sickness, WHEEZING, R06.2 TECHNIQUE: 2D digital imaging was performed. Two views. COMPARISON: CT CT CHEST HIGH RESOLUTION from 05/04/2022 FINDINGS: HEART: Normal size. Aorta: Mildly tortuous. PULMONARY VASCULATURE: Normal. LUNGS: Clear. PLEURAL SPACE: No pleural effusion or pneumothorax. BONE:Unremarkable for age. Soft tissues: Unremarkable. IMPRESSION: No acute abnormality. DATA REPOSITORY: RADIATION DOSE DELIVERED:
== END ==
PROVIDERS: PCP Nurse Practitioner; Visit Provider Student in an Organized Health Care Education/Training Program
DX: R06.2 Wheezing (principal)
CPT/HCPCS: 71046

== ENCOUNTER → 2024-02-07 08:00 | Outpatient (BNVA) | payer MEDICARE, BC, SELFPAY | PROVIDERS: PCP Nurse Practitioner; Referring Provider Nurse Practitioner; Visit Provider Surgery | DX: R13.10 Dysphagia, unspecified (principal) | CPT/HCPCS: 99214 ==

== ENCOUNTER → 2024-02-08 02:01 | Outpatient (CLI) | payer MEDICARE, BC, SELFPAY ==
[2024-02-08] MEDS: Barium Sulfate 40% W/V 240 ML BTL 75 ML PO (14:40)
[2024-02-08] MEDS: Barium Sulfate 700 MG TAB PO (14:41)
[2024-02-08] MEDS: Barium Sulfate Oral Paste 40% W/V 230 ML TUBE 13 ML PO (14:41)
[2024-02-08] MEDS: Barium Sulfate 81% w/w for Oral Suspension 148 GM BTL 80 GM PO (14:42)
--- NOTE | 2024-02-08 14:55 | ST.MBS_ITS ---
Date of Service Date of service: 02/08/24 Time of Service: 14:55 Modified Barium Swallow Study Findings: Video fluoroscopic Swallowing Evaluation (VFSE) / Modified Barium Swallow Study (MBSS) Speech Language Pathology Report Patient referred for VFSE/MBSS from Dr. Servin given suspected oral-pharyngeal vs pharyngo-esophageal dysphagia. HPI & Patient report of function: Patient is a 63year old F with neurogenic cough being treated effectively with gabapentin, now with several recent events of reported coughing/choking with thin liquids, resulting in syncope and brief LOC. These events occurred late at night, only on thin liquids. Additionally, she reports a long history of sensation of pharyngeal stasis with dry/tough (e.g., crusty bread, large bites of steak) as well as dry/particulate (white rice) solids, sometimes leading to coughing. She feels she is limited by this when she goes out to eat and can only order certain foods. She will not begin eating a meal without having a glass of water in front of her due to the frequency and severity of these episodes. She did not report a long history of heartburn/reflux, but was put on a trial of PPI by PCP. She did not feel it was helping, however, when she began to taper off of it she did start to become sensate to heartburn/reflux and has therefore decided to stay on PPI. She was evaluated by MEDICAL EDUCATOR in clinic and MBSS was recommended. She also attended a surgery consult for EGD with Dr. Patrick, who recommended MBSS as well. IMPRESSIONS: Mild-moderate chronic pharyngoesophageal dysphagia is suspected, in context of small cricopharyngeal prominence identified by radiologist (which does not appear to have any functional impact, but patient may be sensate to this) and mild retention of puree consistencies in proximal esophagus (without retrograde flow noted). Suspect presentation is at least partially a result of chronic reflux. Given additional dx of neurogenic cough, there is also possible element of hypersensate pharynx/larynx contributing to reported severity of patient s ymptoms. However, thin liquid coughing episodes could also be explained by reflux aspiration given noted proximal esophageal retention. Patient's reported difficulty with solids is most likely referred sensation from the esophagus given lack of pharyngeal impairment or residue on exam. There was no aspiration and only shallow flash penetration of thin liquids during large/consecutive sips. Although there was a mild delay in pharyngeal onset, this is often a normal finding and did not result in any significant penetration and aspiration. All other aspects of oral and pharyngeal swallow were normal. 13mm barium tablet transited the oropharynx and the UES without any delay. Diet modification is indicated; non-oral nutrition is not indicated. Swallow prognosis is good given: Positive prognostic factors: Severity, Motivation, Family/caregiver support, Cognitive status, Negative prognostic factors: Time since onset, and pending patient/caregiver training in risk management as outlined, including use of trialed compensatory strategies. Patient appears to be a good candidate for behavioral swallow rehabilitation. Specialist referrals:? Consider GI if strategies counseled by MEDICAL EDUCATOR are not effective in managing patient's episodes. ? RECOMMENDATIONS: Diet Texture Recommendation:? IDDSI LEVEL SOLIDS 6-Soft & Bite-Sized Solids LIQUIDS 0-Thin Liquids Please see further details at?[email or web address].org MEDICATIONS Whole with 0-Thin Liquids Diet texture modification is per patient's preference; please adjust diet textures at patient's discretion & collaboration with care team. Do not alter medications (e.g., cut)? without advice from your MD or pharmacist. Risk Management Strategies:? Small bites, approx [id number] Small sips, approx 10 mL Alternate solids/liquids as able Reflux Management Strategies: Slow pace Upright position during + 90 mins after meals Small/more frequent meals and drinking throughout the day Sleep on an incline Control risk factors for aspiration pneumonia via (a) thorough oral hygiene & (b) maintaining physical mobility as tolerated PLAN: Therapy: Recommend subsequent outpatient session with MEDICAL EDUCATOR to review results of today's exam and develop treatment plan as appropriate. May consider the following: Further Compensatory Strategy Training, Further Training/Education in Risk Management, Further Counseling re: Options for maintaining quality of life in context of dysphagia presentation Goals: TBD pending patient/caregiver interview ----- OBJECTIVE Videofluoroscopic Swallow Evaluation (VFSE/MBSS) was conducted in the lateral pr ojection by Speech-Language Pathologist, in collaboration with Radiologist, to evaluate oropharyngeal swallow function. Anatomic view under fluoroscopy: Mild cricopharyngeal hypertrophy noted PO Barium Contrast Trials Oral barium water-soluble contrast was administered as follows: IDDSI Level 0 Varibar thin liquid (40% w/v) IDDSI Level 4 Varibar pudding/pureed/extremely thick (40% w/v) IDDSI Level 7 Regular Solid: 1/2 navid cracker coated in 3 mL Varibar pudding 13 mm barium tablet taken with Water. MBSImP Component Scores: COMPONENT Scale SCORE 1 Lip closure (0-4) 0 Resulted in no labial escape 2 Hold Position (0-3) 0 Maintained a cohesive bolus between tongue to palatal seal 3 Bolus Preparation (0-4) 1 Resulted in slow prolonged chewing/ mashing with complete re-collection 4 Bolus Transport (0-4) 0 Was with brisk tongue motion 5 Oral Residue (0-4) 1 Was a trace, lining oral structures 6 Swallow Initiation (0-4) 3 Occurred when the bolus head was in the pyriform sinuses 7 Soft Palate Elevation (0-4) 0 Resulted in no bolus between soft palate and the pharyngeal wall 8 Laryngeal Elevation (0-3) 1 Was decreased with partial superior movement of thyroid cartilage/partial approximation of arytenoids to epiglottic petiole 9 Anterior Hyoid Motion (0-2) 0 Demonstrated complete anterior movement 10 Epiglottic Movement (0-2) 0 Resulted in complete inversion 11 Laryngeal Closure (0-2) 0 Was complete with no air or contrast in laryngeal vestibule 12 Pharyngeal Stripping Wave (0-2) 0 Was present and complete 13 Pharyngeal Contraction (0-3) NA 14 PES Opening (0-3) 0 Was completely distended and complete duration with no obstruction of flow 15 Tongue Base Retraction (0-4) 1 Allowed a trace column of contrast or air between tongue base and pharyngeal wall 16 Pharyngeal Residue (0-4) 1 Showed a trace within or on pharyngeal structures 17 Esophageal Clearance (0-4) NA unratable due to lack of a/p view, however, noting proximal retention of partial puree bolus Results: COMPONENT Scale SCORE 1 Oral Score (0-18) 4 2 Pharyngeal Score (0-29) 1 3 Esophageal Score (0-4) 4 Not rated Penetration-Aspiration Scale: COMPONENT Scale SCORE 1 Thin liquid (1-8) 2 Contrast entered the airway, remained above the vocal folds, and was ejected from the airway. 2 [place] thick (1-8) NA 3 Honey thick (1-8) NA 4 Pudding thick (1-8) 1 Contrast did not enter the airway 5 Cookie (1-8) 1 Contrast did not enter the airway Trialed Compensatory Strategies & Outcome: Maneuvers Successful(+) Unsuccessful(-) Postures Successful(+) Unsuccessful(-) 3 second Preparatory Set? ?+/- Chin Tuck Posture? ? Cough? ? Posterior Head tilt? Reflexive? Cued? Throat Clear? ? Head Tilt to? Reflexive? Left? Cued? Right? ? Saliva swallow? ? Head Turn/Rotate to? Supraglottic Swallow? Left? ? Super-supraglottic Swallow? Right? ? Bolus Modifications Successful (+) Unsuccessful (-) Delivery/Alternating Consistencies ? Follow with Liquid Wash was not indicated by fluroscopy but improved symptoms ? Follow with Solid Bolus? Delivery/Via Straw? ? Reduced Volume? + Reduced Rate of Intake? ?+ Increased Viscosity? ? Other:?? ? Thank you for allowing us to take part in this patient's care. Please feel free to contact the [facility] Speech Language Pathology Department with any questions/concerns.
--- NOTE | 2024-02-08 15:31 | DI.RAD_ITS ---
Exam(s) RF MODIFIED SPEECH BA SWALLOW TECHNIQUE: Modified barium swallow was performed in conjunction with speech pathology. CONTRAST MATERIAL: Oral barium Oral water soluble contrast was administered. COMPARISON: No exams were available for comparison FINDINGS: Fluoroscopy was provided by the radiologist during performance of a modified barium swallow performed by the speech therapist. See that separate report for details. There was no aspiration evident during this study. Hypertense upper esophageal sphincter was demonst rated with thin liquids. No hiatal hernia observed. No obvious Schatzki ring evident in the lower e sophagus. IMPRESSION: No evidence of aspiration. See separate speech therapist report for details. RADIATION DOSE DELIVERED: ranjan Albert=25.6 mGy
== END ==
PROVIDERS: PCP Nurse Practitioner; Visit Provider Family Medicine
DX: R13.14 Dysphagia, pharyngoesophageal phase (principal)
CPT/HCPCS: 92526; 74221

== ENCOUNTER 2024-06-19 02:14 | Outpatient (CLI) | payer MEDICARE, BC, SELFPAY ==
[2024-06-19 09:04] LABS: Abs Immature Grans 0.03 10^3/uL (0.0-0.06); Absolute Basophil Count 0.03 10^3/uL (0.0-0.2); Absolute Eosinophil Count 0.14 10^3/uL (0.0-0.7); Absolute Lymphocyte Count 0.78 10^3/uL (1.2-3.4); Absolute Monocyte Count 0.42 10^3/uL (0.1-0.8); Absolute Neutrophil Count 4.97 10^3/uL (1.2-6.7); Basophils % 0.5 %; Eosinophils % 2.2 %; HCT 37.8 % (36.0-46.0); HGB 11.9 g/dL (11.2-15.7); Immature Grans % 0.5 %; Lymphocytes % 12.2 %; MCH 25.3 pg (27.0-33.0); MCHC 31.5 % (32.0-36.0); MCV 80 fL (80-95); MPV 11.3 fL (8.0-11.0); Monocytes % 6.6 %; Platelet Count 185 10^3/uL (130-400); RBC 4.71 10^6/uL (3.93-5.22); RDW 14.7 % (11.7-14.6); WBC 6.37 10^3/uL (4.4-10.8)
[2024-06-19 09:15] LABS: Hemoglobin A1C 5.7 % (<5.7)
[2024-06-19 09:17] LABS: ALT 24 U/L (14-59); AST 17 U/L (15-37); Albumin 3.6 g/dL (3.4-5.0); Alkaline Phosphatase 90 U/L (46-116); Anion Gap 7.5 mmol/L (3-11); BUN 19 mg/dL (7-18); Bilirubin, Total 0.71 mg/dL (0.2-1.0); CO2 27.5 mmol/L (21.0-32.0); CREATININE 0.8 mg/dL (0.55-1.02); Calcium 8.8 mg/dL (8.5-10.1); Calculated LDL 98 mg/dL (<100); Chloride 103 mmol/L (98-107); Cholesterol 164 mg/dL (<200); Estimated GFR 81.21 (mL/min/1.73m2); Glucose 104 mg/dL (74-106); HDL Cholesterol 46 mg/dL (40-60); Potassium 3.8 mmol/L (3.5-5.1); Sodium 138 mmol/L (136-145); Triglyceride 100 mg/dL (<150)
== END 2024-06-19 02:15 | disposition home or self-care (01) ==
LOC: LBO 02:14
PROVIDERS: PCP Nurse Practitioner; Referring Provider Nurse Practitioner; Visit Provider Nurse Practitioner
DX: I10 Essential (primary) hypertension (principal); Z13.220 Encounter for screening for lipoid disorders; R73.03 Prediabetes
CPT/HCPCS: 36415; 80053; 80061; 83036; 85025

== ENCOUNTER 2024-06-19 07:37 | Outpatient (CLI) | payer MEDICARE, BC, SELFPAY ==
--- NOTE | 2024-06-19 07:30 | RT.EKG_ITS ---
APPROVED REPORT Exam: Resting ECG Reason for Exam: hypertension Patient Location: O HR:69 bpm ECG Measurements Heart Rate 69 AXIS SD 167 P 28 QRSd 102 QRS 44 QT 411 T 65 QTc 441 Conclusion Sinus rhythm...normal P axis, V-rate 50- 99 Normal Electrocardiogram
== END 2024-06-19 07:38 | disposition home or self-care (01) ==
LOC: DI.KIM 07:38
PROVIDERS: PCP Nurse Practitioner; Visit Provider Nurse Practitioner
DX: I10 Essential (primary) hypertension (principal)
CPT/HCPCS: 93010

== ENCOUNTER 2024-07-03 02:31 | Outpatient (CLI) | payer MEDICARE, BC, SELFPAY ==
--- NOTE | 2024-07-05 11:08 | W.DIABETESNO ---
Date of service: 07/03/24 Time of Service: 11:30 Diabetes Note Reason for Visit: Pre-diabetes education NOTE: Jo referred for nutrition visit due to A1c 5.7 06/19/24. It was 6.0 03/12/22 which she contributed to a fattier diet. Family hx of diabetes with her brother. We discussed 3 other components of glucose mgt as well as diet. Stress mgt was brought up - she denies this is a concern. We discussed sleep quantity/quality - pt states sleep study scheduled and feels like she sleeps pretty well but told she snores. We discussed exercise - She has been admittedly behind in this area but is now participating in future fitness opal which hold her accountable for twice a week 45min activity periods. We discussed her estimated energy, total carb and protein recommendations: ~1600kcals to encourage weight loss. 160g total carbs with ideally no more than 25g coming from added sugar and a minimum of 25g coming from fiber. We discussed protein recommendation of ~100g protein. We looked at serving sizes and sources for protein and the same with total CHO servings (pointing out each serving is 15g). We discussed setting up an ideal menu pattern with times and aim for 3 meals and 0-2 planned snacks. Discussed glycemic index/refinement in cho choices and pairing cho with protein/fiber/fat to delay glucose spikes. Jo took my contact info should she desire follow up or have any questions that need answering via phone call. Time Spent in Nutritional Counseling and Treatment: 25 min
== END 2024-07-03 02:32 | disposition home or self-care (01) ==
LOC: DS 02:32
PROVIDERS: PCP Nurse Practitioner; Visit Provider Dietitian, Registered
DX: R73.03 Prediabetes (principal)
CPT/HCPCS: 00123; 97802

== ENCOUNTER 2024-10-04 01:13 | Outpatient (CLI) | payer MEDICARE, BC, SELFPAY ==
--- NOTE | 2024-10-04 | DI.RAD_ITS ---
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 TECHNIQUE: 2D digital imaging was performed of the right ankle and foot. Six images were obtained. AP, oblique and lateral views were obtained. COMPARISON: There are no priors for comparison. FINDINGS: BONES: No acute fracture is present. No bony destructive lesion is seen. JOINTS: No dislocation present. The ankle is well maintained. There are degenerative changes of the foot characterized by joint space narrowing and osteophytes. The findings are prominent at the 2nd a nd 3rd tarsometatarsal joints, the articulation of the navicular and the cuneiforms, the 1st MTP join t and the interphalangeal joints of the toes. There is a hammertoe deformity of the 2nd toe. SOFT TISSUE: There are soft tissue calcifications on the plantar surface of the foot which may be ass ociated with the plantar fascia. IMPRESSION: Moderate arthrosis of the right foot. DATA REPOSITORY: RADIATION DOSE DELIVERED:
== END 2024-10-04 01:33 ==
LOC: DI 01:13
PROVIDERS: PCP Nurse Practitioner; Visit Provider Podiatrist Foot & Ankle Surgery
DX: G57.61 Lesion of plantar nerve, right lower limb (principal); M19.071 Primary osteoarthritis, right ankle and foot
CPT/HCPCS: 73610; 73630

== ENCOUNTER 2025-02-05 02:47 | Outpatient (CLI) | payer MEDICARE, BC, SELFPAY ==
--- NOTE | 2025-02-05 12:45 | DI.US_ITS ---
Exam(s) US SOFT TISSUE EXTREMITY EXAM: US SOFT TISSUE EXTREMITY CLINICAL HISTORY: mass soft tissue rt upper ext,m79.89. TECHNIQUE: Ultrasound was performed using standard protocol. COMPARISON: No exams were available for comparison FINDINGS: Sonographic assessment utilizing grayscale and color Doppler imaging was performed and targeted to the area of clinical concern. There is a nonspecific 2 mm cyst seen in the soft tissues of the right upper extremity. No suspicious cystic or solid masses are seen sonographically. IMPRESSION: DATA REPOSITORY:
== END 2025-02-05 03:07 ==
LOC: DI 02:47
PROVIDERS: PCP Nurse Practitioner; Visit Provider Family Medicine
DX: M79.89 Other specified soft tissue disorders (principal)
CPT/HCPCS: 76881

== ENCOUNTER → 2025-02-13 13:32 | Outpatient (BNVA) | payer MEDICARE, BC, SELFPAY | PROVIDERS: PCP Nurse Practitioner; Referring Provider Nurse Practitioner; Visit Provider Physical Therapy Assistant | DX: M79.89 Other specified soft tissue disorders (principal) | CPT/HCPCS: 99213 ==